=== PATIENT | female | born 1945 | race Caucasian/White ===

== ENCOUNTER 2020-04-15 10:53 | Outpatient (CLI) | payer MEDICARE, OTHER, SELFPAY ==
--- NOTE | 2020-04-15 11:12 | US_ITS ---
WS: [id number] ULTRASOUND SOFT TISSUES RIGHT neck HISTORY: KNOT IN THROAT COMPARISON: None available. TECHNIQUE: 2-D and color Doppler imaging is submitted. Palpable area corresponds to the RIGHT submandibular gland. Normal-appearing gland with no mass. No a djacent lymph nodes. There is a similar appearance in the LEFT neck. US/US soft tissue/extremity [id number] IMPRESSION: Palpable area corresponds to the submandibular gland. No mass or adenopathy edwardo ntified. Clinically if this does not explain the palpable area follow-up neck C T with IV contrast can be performed. No abnormality identified by ultrasound.
== END 2020-04-15 10:54 | disposition home or self-care (01) ==
LOC: RAD 10:59
PROVIDERS: PCP Family Medicine; Visit Provider Family Medicine
DX: R22.1 Localized swelling, mass and lump, neck (principal)
CPT/HCPCS: 76882

== ENCOUNTER 2020-05-03 07:37 | Outpatient (CLI) | payer MEDICARE, OTHER, SELFPAY ==
--- NOTE | 2020-05-03 08:14 | CT_ITS ---
WS: [id number] CT NECK WITH CONTRAST HISTORY: KNOT IN THROAT TECHNIQUE: Contiguous 5 mm axial images are performed through the neck with intravenous contrast. Sag ittal and coronal reformats are also submitted. All CT scans at [facility] use at least o ne of these dose optimization techniques: automated exposure control; mA and/or kV adjustment per pat ient size (includes targeted exams where dose is matched to clinical indication); or iterative recons truction. CONTRAST: CONTRAST: Omnipaque 300; 95 mL IV. DLP: 2157.04 mGycm COMPARISON: Ultrasound soft tissue 04/15/2020. Marker is placed over the palpable area along the RIGHT neck. This palpable area corresponds to a mil dly prominent RIGHT submandibular gland. Both submandibular glands are very slightly prominent but th ere is no adjacent inflammation. No mass identified. Very mild asymmetry of the parapharyngeal soft tissues on the LEFT. No enhancing mass identified. Bertin opharynx and oropharynx and larynx are otherwise unremarkable. No significant narrowing or strictures throughout the airway. Torus tubarius and fossa of Rosenmuller and parapharyngeal fat are normal. No significant lymphadenopathy is identified. Thyroid gland and salivary glands are normally enhancing with no masses. Mild disc space narrowing and osteophytosis at C6-7. No bone destruction. Visualized portions of the skull base demonstrate no abnormalities. Orbits and globes are within norm al limits. No soft tissue masses. Intracranial carotid arteries are symmetric. The supraclinoid carotid artery on the RIGHT is small ca liber as compared to the LEFT. Moderate atherosclerotic disease. Visualized paranasal sinuses and mastoid air cells are normal. Lung apices are clear. CT/CT neck w con* [id number] IMPRESSION: 1. Palpable nodule RIGHT neck corresponds to a mildly prominent RIGHT submandi bular gland. There are no adjacent inflammatory changes or associated masses. B ilateral submandibular glands are various symmetric. 2. No adenopathy. 3. If symptoms persist consider direct visualization.
[2020-05-03 08:43] LABS: Blood Urea Nitrogen 9 mg/dL (8-23)
[2020-05-03] MEDS: iohexol 300 mg/mL 100 mL Btl IV (08:55)
== END 2020-05-03 07:38 | disposition home or self-care (01) ==
LOC: RADWPI 07:41
PROVIDERS: PCP Family Medicine; Visit Provider Family Medicine
DX: R22.1 Localized swelling, mass and lump, neck (principal)
CPT/HCPCS: 70491; 82565; 84520; Q9967

== ENCOUNTER 2020-05-19 14:15 | Outpatient (CLI) | payer MEDICARE, OTHER, SELFPAY ==
--- NOTE | 2020-05-19 14:28 | XR_ITS ---
WS: [id number] Chest 2 views, 05/19/2020 Clinical Data: COUGH Comparison: Portable chest, 02/09/2019. Findings: No nodules, masses or effusions are seen. The heart is normal. The pulmonary vascularity is not increased. No pneumonia or pneumothorax is seen. The aortic arch and descending aorta are tortuo us. There are clips in the right upper quadrant from a cholecystectomy. There is a dextroscoliosis of the lower thoracic spine. XR/XR chest 2V* [id number] Impression: Atherosclerosis.
== END 2020-05-19 14:16 | disposition home or self-care (01) ==
PROVIDERS: PCP Family Medicine; Visit Provider Specialist
DX: R05 Cough (principal); I70.90 Unspecified atherosclerosis
CPT/HCPCS: 71046

== ENCOUNTER 2020-05-31 07:02 | Outpatient (CLI) | payer MEDICARE, OTHER, SELFPAY ==
--- NOTE | 2020-05-31 13:27 | PFTS_ITS ---
Date of Study:05/31/20 Date of Dictation: MECHANICS: Forced vital capacity (FVC) is normal. Forced expiratory volume in one second (FEV1) is normal. FEV1/FVC is normal. FLOW VOLUME LOOP: Normal. LUNG VOLUMES: Not measured. DIFFUSING CAPACITY FOR CARBON MONOXIDE: Not measured. INTERPRETATION: The prebronchodilator spirometry is normal. MTDD
== END 2020-05-31 07:03 | disposition home or self-care (01) ==
LOC: RT 07:02
PROVIDERS: PCP Family Medicine; Visit Provider Specialist
DX: R05 Cough (principal)
CPT/HCPCS: 94010

== ENCOUNTER 2020-10-12 09:07 | Outpatient (CLI) | payer MEDICARE, OTHER, SELFPAY ==
[2020-10-12 09:17] VITALS: BP 133/86; PULSE 97; RESP 16; TEMP 37; O2SAT 98
[2020-10-12 10:55] VITALS: BP 139/82; PULSE 87; RESP 16; O2SAT 87
== END 2020-10-12 15:49 | disposition home or self-care (01) ==
PROVIDERS: PCP Family Medicine; Visit Provider Family Medicine
DX: U07.1 COVID-19 (principal)
CPT/HCPCS: 96365

== ENCOUNTER → 2021-11-25 07:52 | Outpatient (BNVA) | payer MEDICARE, OTHER, SELFPAY | PROVIDERS: PCP Family Medicine; Visit Provider Family Medicine | DX: J30.9 Allergic rhinitis, unspecified (principal); M19.90 Unspecified osteoarthritis, unspecified site; E78.5 Hyperlipidemia, unspecified; E11.9 Type 2 diabetes mellitus without complications | CPT/HCPCS: 80053; 80061; 82607; 83036 ==

== ENCOUNTER → 2021-11-30 11:55 | Outpatient (BNVA) | payer MEDICARE, OTHER, SELFPAY | PROVIDERS: PCP Family Medicine; Visit Provider Family Medicine | DX: Z91.014 Allergy to mammalian meats (principal); T78.40XA Allergy, unspecified, initial encounter; L30.9 Dermatitis, unspecified; I10 Essential (primary) hypertension; E78.5 Hyperlipidemia, unspecified; E11.9 Type 2 diabetes mellitus without complications | CPT/HCPCS: 86003; 86008 ==

== ENCOUNTER 2024-02-05 06:54 | Outpatient (CLI) | payer MEDICARE, OTHER, SELFPAY ==
--- NOTE | 2024-02-05 06:59 | MR_ITS ---
WS: [id number] MRI LUMBAR SPINE NONCONTRAST TECHNIQUE: Sagittal T1, T2 and STIR imaging. Axial T1 and T2 imaging. CLINICAL INFORMATION: LBP COMPARISON: None. FINDINGS: Mild lumbar curve. No acute compression. Disc space narrowing worse at L4-L5 and L5-S1. L1-L2: Mild facet arthropathy. Spinal canal and foramen are patent. L2-L3: Mild annular bulging. Moderate facet arthropathy. Slight narrowing RIGHT subarticular recess. Spinal canal and foramen are patent. L3-L4: Slight anterolisthesis L3 on L4. Disc bulging in combination with facet arthropathy and ligame ntum flavum hypertrophy results in mild central canal stenosis. Slight narrowing of the subarticular recess bilaterally. Foramen are patent. L4-L5: Disc space narrowing with mild disc bulging and osteophytic ridging. LEFT eccentric disc bulgi ng impinges the LEFT subarticular recess and traversing LEFT L5 nerve root. Recommend correlation for LEFT L5 nerve root symptoms. Moderate facet arthropathy. Mild LEFT foraminal narrowing. L5-S1: Mild disc bulging with endplate ridging. Mild LEFT and no significant RIGHT foraminal narrowin g. Slight impingement on the traversing LEFT S1 nerve root in the subarticular recess. Moderate facet arthropathy. Bilateral peripelvic renal cysts. MR/MR lumbar spine wo con* [id number] IMPRESSION: 1. Mild lumbar curve. No acute compression. 2. Mild central canal stenosis L3-4 with slight anterolisthesis L3 on L4. Slig ht impingement subarticular recess at this level. 3. Disc bulging L4-5 impinges the traversing LEFT L5 nerve root in the LEFT odom barticular recess with mild LEFT foraminal narrowing. 4. Disc bulge L5-S1 with impingement on the traversing LEFT S1 nerve root with mild LEFT L5-S1 foraminal narrowing. 5. Disc bulge L2-3 with slight narrowing RIGHT subarticular recess with encroa chment on traversing RIGHT L3 nerve root.
== END 2024-02-05 06:55 | disposition home or self-care (01) ==
LOC: RAD 06:55
PROVIDERS: PCP Family Medicine; Visit Provider Electrodiagnostic Medicine
DX: M47.896 Other spondylosis, lumbar region (principal); M51.360 Other intervertebral disc degeneration, lumbar region with discogenic back pain only; M54.16 Radiculopathy, lumbar region; M25.78 Osteophyte, vertebrae
CPT/HCPCS: 72148

== ENCOUNTER 2024-08-18 07:04 | Outpatient (CLI) | payer MEDICARE, OTHER, SELFPAY ==
--- NOTE | 2024-08-18 07:29 | NMCV_ITS ---
NM holland perf SPECT r/s* [id number] Jaycee Rendon Age: 79 Gender: F : 1945 Exam Date: 08/18/2024 08:25 Ordering Phys: Jake Pedraza DO Technologist: STACIA Montes Exam Location: [facility] Indications: cp STRESS TEST Please see separate stress test report in [facility] for full findings IMAGE PROTOCOL Rest/Stress 1 Lexiscan Day Radiopharmaceutical Dose (mCi) Administration Site Administered by Rest: Tc-99m 10.4 IV Cassidy Chavez, CONSTRUCTION RIGGER Sestamibi Stress:Tc-99m 32.7 IV Cassidy Lambertgle, CONSTRUCTION RIGGER Sestamibi Rest: 18-Aug-2024 60 Discovery 630 Stress: 18-Aug-2024 30 Discovery 630 0.4mg Lexiscan. Images obtained in supine and prone position. SPECT RESULTS Technical Quality: Good Raw Data Analysis: Normal Image Corrections: No attenuation or motion correction applied Summed Stress Score: 0 Summed Rest Score: 1 Summed Difference Score: 0 PERFUSION FINDINGS Fairly uniform myocardial tracer uptake. No significant Perfusion normalities. FUNCTIONAL RESULTS (calculated via Gated SPECT) Stress Image LV EF (%): 88 Stress EDV (mL):48 TID: 0.72 Stress ESV (mL):6 FUNCTIONAL FINDINGS: Segmental wall motion analysis revealing no gross wall motion abnormalities IMPRESSIONS 1. Myocardial perfusion imaging revealing uniform myocardial tracer uptake. 2. Normal LV ejection fraction of 88%. 3. LV wall motion analysis revealing no gross wall motion abnormalities. 4. Normal LV volume Low probability for coronary ischemia, based on the above findings Dr Gerri Gomez MD FACC (Electronically Signed) Final Date: 18 August 2024 21:36 S
--- NOTE | 2024-08-18 07:29 | ECG_ITS ---
[facility] Date: 2024-08-18 Pat Name: Jaycee Rendon Department: Room: Gender: Female [employer]: : 1945 Requested By: Jake Dickson Order Number: [id number] Divina MD: Gerri Gomez M.D. Interpretive Statements Lung unchanged pre/post procedure; Intraprocedure shortess of breath; Symptoms resoled by discharge PROCEDURE: At the baseline, the EKG revealed normal sinus rhythm with a normal ST Ts. The baseline heart was 84 bpm with a blood pressue of 144/81 mm of Hg Lexiscan was infused over a period of 20 seconds. A total of 0.4 milligrams of Lexiscan was infused. The stress phase was continued for a total of 5 minutes. Heart rate at the end of the stress phase was 102 bpm with a blood pressure 163/84 mm of Hg. The EKG at the peak infusion revealed no significant changes. Sestamibi was injected 20 seconds after the Lexiscan infusion. Heart rate at the end of the recovery phase was 100 bpm with a blood pressure of 157/80 mm of Hg. CONCLUSION: 1. No significant EKG changes with the LexiScan infusion 2. No LexiScan induced chest pain or cardiac arrhythmia 3. Normal blood pressure and heart rate response 4. Sestamibi/sestamibi perfusion scan pending; see separate report. Electronically Signed On 08-20-2024 23:06:54 CDT by Gerri Gomez M.D. [email or web address]
[2024-08-18 07:30] VITALS: BMI 34.3
[2024-08-18] MEDS: regadenoson 0.4 Mg/5 ml Syringe IVP (08:58)
[2024-08-18 09:13] VITALS: BP 157/80; PULSE 100
== END 2024-08-18 07:05 | disposition home or self-care (01) ==
LOC: CDL 07:09
PROVIDERS: PCP Electrodiagnostic Medicine; Visit Provider Electrodiagnostic Medicine
DX: R06.09 Other forms of dyspnea (principal)
CPT/HCPCS: 36415; 78452; 93017; 96374; A9500; J2785